=== PATIENT | male | born 1945 | race Caucasian/White ===

== ENCOUNTER 2017-01-27 11:05 | Emergency (ER) | payer OTHER ==
[~2017-01-27] VITALS: Ht 162.6 cm; Wt 106.0 kg
[2017-01-27 11:43] LABS: HEMATOCRIT 47.4 % (38.0-50.0); MCH 29.9 PG (29.0-34.0); MCHC 33.8 G/DL (30.0-36.0); MCV 88.4 FL (86-99); MEAN PLAT.VOLUME 10.1 uM^3 (9.0-12.4); PLATELET COUNT 225 K/uL (156-360); RBC DIS.WIDTH-CV 13.4 % (11.8-14.6); RBC DIS.WIDTH-SD 43.8 % (39-53); RED BLOOD COUNT 5.36 M/uL (4.00-5.50); WHITE BLOOD COUNT 12.2 K/uL (4.1-10.2)
[2017-01-27 11:53] LABS: CHLORIDE 106 mEq/L (99-109); POTASSIUM 4.1 mEq/L (3.7-5.4); SODIUM 139 mEq/L (136-147)
[2017-01-27 11:55] LABS: GLUCOSE 82 mg/dL (70-99)
[2017-01-27 11:56] LABS: ANION GAP 9 MEQ/L (2-14)
[2017-01-27 11:58] LABS: GFR ESTIMATE (CALCULATED) > 59 mL/min/
[2017-01-27 11:59] LABS: UREA NITROGEN (BUN) 12 mg/dL (9-23)
[2017-01-27] MEDS ORDERED: AUGMENTIN875 MG PO (12:31)
[2017-01-27] MEDS ORDERED: PERCOCET 5/31 TABLET PO (12:31)
[2017-01-27 12:51] VITALS: BP 155/55
== END 2017-01-27 12:57 | disposition home or self-care (01) ==
LOC: EME 11:05
PROVIDERS: Nurse Practitioner Family
PROC: 0H9FXZZ Drainage of Right Hand Skin, External Approach (ICD-10-PCS; principal; 2017-01-27)
DX: L02.511 Cutaneous abscess of right hand (principal); W55.42XA Struck by pig, initial encounter; E78.5 Hyperlipidemia, unspecified; I10 Essential (primary) hypertension; I25.2 Old myocardial infarction; Z87.891 Personal history of nicotine dependence
CPT/HCPCS: 73130; 80048; 85027; 99281; 99284